=== PATIENT | male | born 1945 | race Caucasian/White ===

== ENCOUNTER 2022-10-09 16:18 | Emergency (ER) | payer OTHER, SELFPAY ==
[2022-10-09] VITALS (29 sets, daily range): BP systolic 121–151; BP diastolic 73–91; PULSE 70–99; RESP 9–23; TEMP 36.6; O2SAT 94–99; BMI 27.0
--- NOTE | 2022-10-09 16:25 | DI.RAD.S_ITS ---
PROCEDURE: XR CHEST 1V INDICATIONS: fall, +LOC, vomiting TECHNIQUE: One view of the chest was acquired. COMPARISON: None. FINDINGS: Surgical changes and devices: None. Lungs and pleura: Lungs are clear. No pleural effusions or pneumothorax. Mediastinum: Mediastinal contours appear normal. Heart size is normal. Bones and chest wall: No suspicious bony lesions. Overlying soft tissues appear unremarkable. IMPRESSION: No acute cardiopulmonary pathology. Dictated by: Hermes Rojas M.D. on 10/09/2022 at 16:43 Approved by: Hermes Rojas M.D. on 10/09/2022 at 16:44
--- NOTE | 2022-10-09 16:25 | DI.RAD.S_ITS ---
PROCEDURE: XR PELVIS 1-2V INDICATIONS: fall, +LOC, vomiting TECHNIQUE: 1 view(s) of the pelvis acquired. COMPARISON: None. FINDINGS: Bones: No fractures or dislocations. 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 No evidence of avascular necrosis of femoral head. No suspicious bony lesions. Degenerative disc disease in lower lumbar spine is seen. Soft tissues: Visualized bowel gas pattern is normal. No suspicious soft tissue calcifications. IMPRESSION: No gross acute pelvic fracture or dislocation. Dictated by: Hermes Rojas M.D. on 10/09/2022 at 16:42 Approved by: Hermes Rojas M.D. on 10/09/2022 at 16:43
--- NOTE | 2022-10-09 16:27 | DI.CT.S_ITS ---
PROCEDURE: CT CERVICAL SPINE WO CON INDICATIONS: Trauma TECHNIQUE: Noncontrast 3 mm thick sections acquired from the skull base to the T4 level. Sagittal and coronal reformats were then constructed. For radiation dose reduction, the following was used: automated exposure control, adjustment of mA and/or kV according to patient size. COMPARISON: None. FINDINGS: Image quality: Excellent. Bones: No fractures or dislocations. Loss of disc height, degenerative endplate changes and bilateral facet hypertrophic changes are noted throughout cervical spine with dorsal disc osteophyte complex formation at C4-5 through C6-7 levels causing mild central canal stenosis and mild bilateral neural foraminal narrowing. Visualized superior ribs are intact. Soft tissues: Prevertebral soft tissues are normal in thickness. No paravertebral hematomas. No apical pneumothoraces. IMPRESSION: 1. No acute cervical spine fracture or dislocation. 2. Degenerative disc disease throughout cervical spine as above. Dictated by: Hermes Rojas M.D. on 10/09/2022 at 16:44 Approved by: Hermes Rojas M.D. on 10/09/2022 at 16:45
--- NOTE | 2022-10-09 16:27 | ED.TRAUMA ---
HPI - Trauma <Nova Kelly DO - Last Filed: 10/11/22 07:38> General Chief Complaint: Fall Stated Complaint: Fall Time Seen by Provider: 10/09/22 16:25 Source: patient and RN notes reviewed Mode of arrival: EMS Limitations: altered mental status History of Present Illness HPI narrative: This is a 77-year-old male with no reported medical history or daily medications. Patient had a witnessed was on his boat with stepping and fell backwards his head on a threshold. Had at least several minute loss of consciousness present. Patient started to regain conscious started having nausea and vomiting. Was altered was confused did not know what had happened. When EMS arrived was still confused started to be able to answer questions about his name and medical history on the right to the emergency department. was able to give history patient has no daily medications no new medical issues. No reported surgeries. No known drug allergies. Patient also correlates sees answers with myself. He is able to tell me his name, the year he does not know where he is at but knew that he had been transported. Patient's main complaint is nausea and vomiting. He denies headache, neck pain, no chest pain or shortness of breath, no back pain. No numbness, tingling or weakness. No loss of bowel or bladder control. No diarrhea constipation no other current symptoms. He denies any daily medications states no known drug allergies. Patient denies tobacco, regular alcohol or illicit. Lives in [place] in his sealed up to the area and are currently staying on their sailboat. Related Data Allergies Allergy/AdvReac Type Severity Reaction Status Date / Time No Known Drug Allergies Allergy Verified 10/09/22 16:38 Review of Systems <Nova Kelly DO - Last Filed: 10/11/22 07:38> Review of Systems ROS Unobtainable: All systems reviewed & are unremarkable except as noted in HPI and below Exam <DO Lonny Mcneil Last Filed: 10/11/22 07:38> Narrative Exam Narrative: GEN: Patient appears in moderate distress. HEAD: Patient has a 2 cm laceration on the left posterior parietal scalp, no raccoon/Lemons sign. NECK: Nontender, painless range of motion, trachea midline Positive for Nexus criteria, no midline line tenderness, distracting injury, slightly altered mental status, no neuro deficit, recent EtOH. EYES: PERRLA, EOMI ENT: External inspection normal, trachea is midline, TM's are normal no hemotypanum, Nares are clear, no septal hematoma, no dental or oral injury, airway is normal and with normal occlusion, No bony tenderness RESP: Chest is nontender and has symmetric movement, no ecchymosis, breath sounds are normal no crackles, wheezes or rales CVS: Heart sounds are normal, no murmur noted, No JVD. ABG/GI: Nontender, soft, normal bowel sounds, no distention, no organomegaly, pelvic rock is negative NEURO: Oriented AOx3, neuro is grossly intact, sensation and motor is normal all 4 extremities moving, cranial nerves II through XII are intact, GCS is 14 PSYCH: Normal mood and affect SKIN: Intact, warm and dry, no crepitus and without decubitus BACK: No CVA tenderness, no vertebral tenderness, no step-off's, no crepitus EXT: Atraumatic, hips are nontender, no pedal edema, normal color and temperature, normal range of motion of extremities with normal tendon exam, 2+ pulses in all four extremities Initial Vital Signs Initial Vital Signs: Vital Signs Temperature 97.8 F 10/09/22 16:18 Pulse Rate 99 H 10/09/22 16:18 Respiratory Rate 18 10/09/22 16:18 Blood Pressure 130/80 10/09/22 16:18 Pulse Oximetry 94 10/09/22 16:18 Oxygen Delivery Method Room Air 10/09/22 16:18 <Richard Reynoso DO - Last Filed: 10/09/22 23:51> Initial Vital Signs Initial Vital Signs: Vital Signs Temperature 97.8 F 10/09/22 16:18 Pulse Rate 99 H 10/09/22 16:18 Respiratory Rate 18 10/09/22 16:18 Blood Pressure 130/80 10/09/22 16:18 Pulse Oximetry 94 10/09/22 16:18 Oxygen Delivery Method Room Air 10/09/22 16:18 Course <Nova Kelly DO - Last Filed: 10/11/22 07:38> Orders Ordered: Discontinued Medications Aspirin (Aspirin 81 Mg Chew Tab) 324 mg PO NOW ONE Stop: 10/09/22 19:52 Last Admin: 10/09/22 20:46 Dose: 324 mg Documented By: TAM Atorvastatin Calcium (Atorvastatin 20 Mg Tablet) 80 mg PO NOW ONE Stop: 10/09/22 19:52 Last Admin: 10/09/22 20:47 Dose: 80 mg Documented By: TAM Diphtheria/Tetanus/Acell Pertussis (Tet,Diph,Pertuss(Acell),Vac/Pf 0.5 Ml Syringe) 0.5 ml IM .ONCE ONE Stop: 10/09/22 16:26 Last Admin: 10/09/22 16:46 Dose: Not Given Documented By: TAM Heparin Sodium (Porcine) (Heparin 5,000 Unit/Ml Vial) 5,000 unit IV NOW ONE Stop: 10/09/22 18:06 Last Admin: 10/09/22 18:30 Dose: 5,000 unit Documented By: ROBERTH Sodium Chloride (Normal Saline 0.9%) 1,000 mls @ 150 mls/hr IV CONT CASSIDY Last Infusion: 10/10/22 00:07 Dose: 0 mls/hr Documented By: Admin: 10/09/22 16:48 Dose: 150 mls/hr Documented By: TAM Heparin Sodium/Dextrose (Heparin Drip) 25,000 unit in 500 mls @ 21.696 mls/hr IV CONT CASSIDY; Protocol Heparin Sodium/Dextrose (Heparin Drip) 25,000 unit in 500 mls @ 20 mls/hr IV CONT CASSIDY; Protocol Last Titration: 10/10/22 00:07 Dose: 0 unit/hr, 0 mls/hr Documented By: TAM Co-signed By: ERIC Admin: 10/09/22 18:34 Dose: 1,000 unit/hr, 20 mls/hr Documented By: ROBERTH Co-signed By: MARTY Lorazepam (Lorazepam 2 Mg/Ml Inj) 0.5 mg IV NOW PRN PRN Reason: vomiting Ondansetron HCl (Ondansetron 4 Mg/2 Ml Inj) 4 mg IV NOW ONE Stop: 10/09/22 16:36 Last Admin: 10/09/22 16:48 Dose: 4 mg Documented By: TAM Vital Signs Vital signs: Vital Signs - 8 hr 10/09/22 16:18 10/09/22 16:50 10/09/22 16:55 Temperature 97.8 F Pulse Rate 99 H 90 74 Respiratory Rate 18 18 19 Blood Pressure 130/80 125/78 Pulse Oximetry 94 95 96 Oxygen Delivery Method Room Air Room Air 10/09/22 17:00 10/09/22 17:00 10/09/22 17:10 Temperature Pulse Rate 91 H 87 Respiratory Rate 23 23 Blood Pressure 121/79 Pulse Oximetry 97 97 Oxygen Delivery Method 10/09/22 17:10 10/09/22 17:30 10/09/22 17:53 Temperature Pulse Rate 94 H Respiratory Rate 20 Blood Pressure 123/79 129/78 Pulse Oximetry 97 Oxygen Delivery Method 10/09/22 17:53 10/09/22 18:00 10/09/22 18:30 Temperature Pulse Rate 84 83 81 Respiratory Rate 19 18 13 Blood Pressure Pulse Oximetry 96 96 96 Oxygen Delivery Method 10/09/22 18:35 10/09/22 18:35 10/09/22 18:40 Temperature Pulse Rate 81 Respiratory Rate 20 Blood Pressure 130/80 134/86 Pulse Oximetry 98 Oxygen Delivery Method 10/09/22 18:40 10/09/22 18:50 10/09/22 18:50 Temperature Pulse Rate 91 H 80 Respiratory Rate 23 17 Blood Pressure 130/73 Pulse Oximetry 96 98 Oxygen Delivery Method 10/09/22 19:00 10/09/22 19:01 10/09/22 19:01 Temperature Pulse Rate 74 74 Respiratory Rate 11 L 12 Blood Pressure 134/73 Pulse Oximetry 98 97 Oxygen Delivery Method 10/09/22 19:10 10/09/22 19:10 10/09/22 19:20 Temperature Pulse Rate 79 Respiratory Rate 13 Blood Pressure 144/74 H 146/74 H Pulse Oximetry 97 Oxygen Delivery Method 10/09/22 19:20 10/09/22 19:30 10/09/22 19:30 Temperature Pulse Rate 79 76 Respiratory Rate 14 15 Blood Pressure 146/84 H Pulse Oximetry 98 99 Oxygen Delivery Method 10/09/22 19:40 10/09/22 19:40 10/09/22 19:50 Temperature Pulse Rate 77 75 Respiratory Rate 9 L 11 L Blood Pressure 132/77 Pulse Oximetry 97 98 Oxygen Delivery Method 10/09/22 19:50 10/09/22 20:00 10/09/22 20:00 Temperature Pulse Rate 86 Respiratory Rate 15 Blood Pressure 133/76 149/84 H Pulse Oximetry 98 Oxygen Delivery Method 10/09/22 20:10 10/09/22 20:10 10/09/22 20:20 Temperature Pulse Rate 79 83 Respiratory Rate 13 14 Blood Pressure 137/77 Pulse Oximetry 95 96 Oxygen Delivery Method 10/09/22 20:20 10/09/22 20:30 10/09/22 20:30 Temperature Pulse Rate 83 Respiratory Rate 16 Blood Pressure 144/77 H 136/83 Pulse Oximetry 97 Oxygen Delivery Method 10/09/22 20:40 10/09/22 20:40 10/09/22 20:50 Temperature Pulse Rate 81 Respiratory Rate 23 Blood Pressure 146/91 H 141/88 H Pulse Oximetry 97 Oxygen Delivery Method 10/09/22 20:50 10/09/22 21:00 10/09/22 21:00 Temperature Pulse Rate 84 78 Respiratory Rate 18 17 Blood Pressure 151/90 H Pulse Oximetry 94 94 Oxygen Delivery Method 10/09/22 21:30 10/09/22 22:00 10/09/22 22:00 Temperature Pulse Rate 75 70 Respiratory Rate 16 14 Blood Pressure 137/83 Pulse Oximetry 96 95 Oxygen Delivery Method 10/09/22 22:30 Temperature Pulse Rate 76 Respiratory Rate 14 Blood Pressure Pulse Oximetry 95 Oxygen Delivery Method <Richard Reynoso, - Last Filed: 10/09/22 23:51> Orders Ordered: Discontinued Medications Aspirin (Aspirin 81 Mg Chew Tab) 324 mg PO NOW ONE Stop: 10/09/22 19:52 Last Admin: 10/09/22 20:46 Dose: 324 mg Documented By: RL Atorvastatin Calcium (Atorvastatin 20 Mg Tablet) 80 mg PO NOW ONE Stop: 10/09/22 19:52 Last Admin: 10/09/22 20:47 Dose: 80 mg Documented By: RL Diphtheria/Tetanus/Acell Pertussis (Tet,Diph,Pertuss(Acell),Vac/Pf 0.5 Ml Syringe) 0.5 ml IM .ONCE ONE Stop: 10/09/22 16:26 Last Admin: 10/09/22 16:46 Dose: Not Given Documented By: RL Heparin Sodium (Porcine) (Heparin 5,000 Unit/Ml Vial) 5,000 unit IV NOW ONE Stop: 10/09/22 18:06 Last Admin: 10/09/22 18:30 Dose: 5,000 unit Documented By: RLS Sodium Chloride (Normal Saline 0.9%) 1,000 mls @ 150 mls/hr IV CONT CASSIDY Last Infusion: 10/10/22 00:07 Dose: 0 mls/hr Documented By: Admin: 10/09/22 16:48 Dose: 150 mls/hr Documented By: TAM Heparin Sodium/Dextrose (Heparin Drip) 25,000 unit in 500 mls @ 21.696 mls/hr IV CONT CASSIDY; Protocol Heparin Sodium/Dextrose (Heparin Drip) 25,000 unit in 500 mls @ 20 mls/hr IV CONT CASSIDY; Protocol Last Titration: 10/10/22 00:07 Dose: 0 unit/hr, 0 mls/hr Documented By: TAM Co-signed By: ERIC Admin: 10/09/22 18:34 Dose: 1,000 unit/hr, 20 mls/hr Documented By: ROBERTH Co-signed By: MARTY Lorazepam (Lorazepam 2 Mg/Ml Inj) 0.5 mg IV NOW PRN PRN Reason: vomiting Ondansetron HCl (Ondansetron 4 Mg/2 Ml Inj) 4 mg IV NOW ONE Stop: 10/09/22 16:36 Last Admin: 10/09/22 16:48 Dose: 4 mg Documented By: TAM Vital Signs Vital signs: Vital Signs - 8 hr 10/09/22 16:18 10/09/22 16:50 10/09/22 16:55 Temperature 97.8 F Pulse Rate 99 H 90 74 Respiratory Rate 18 18 19 Blood Pressure 130/80 125/78 Pulse Oximetry 94 95 96 Oxygen Delivery Method Room Air Room Air 10/09/22 17:00 10/09/22 17:00 10/09/22 17:10 Temperature Pulse Rate 91 H 87 Respiratory Rate 23 23 Blood Pressure 121/79 Pulse Oximetry 97 97 Oxygen Delivery Method 10/09/22 17:10 10/09/22 17:30 10/09/22 17:53 Temperature Pulse Rate 94 H Respiratory Rate 20 Blood Pressure 123/79 129/78 Pulse Oximetry 97 Oxygen Delivery Method 10/09/22 17:53 10/09/22 18:00 10/09/22 18:30 Temperature Pulse Rate 84 83 81 Respiratory Rate 19 18 13 Blood Pressure Pulse Oximetry 96 96 96 Oxygen Delivery Method 10/09/22 18:35 10/09/22 18:35 10/09/22 18:40 Temperature Pulse Rate 81 Respiratory Rate 20 Blood Pressure 130/80 134/86 Pulse Oximetry 98 Oxygen Delivery Method 10/09/22 18:40 10/09/22 18:50 10/09/22 18:50 Temperature Pulse Rate 91 H 80 Respiratory Rate 23 17 Blood Pressure 130/73 Pulse Oximetry 96 98 Oxygen Delivery Method 10/09/22 19:00 10/09/22 19:01 10/09/22 19:01 Temperature Pulse Rate 74 74 Respiratory Rate 11 L 12 Blood Pressure 134/73 Pulse Oximetry 98 97 Oxygen Delivery Method 10/09/22 19:10 10/09/22 19:10 10/09/22 19:20 Temperature Pulse Rate 79 Respiratory Rate 13 Blood Pressure 144/74 H 146/74 H Pulse Oximetry 97 Oxygen Delivery Method 10/09/22 19:20 10/09/22 19:30 10/09/22 19:30 Temperature Pulse Rate 79 76 Respiratory Rate 14 15 Blood Pressure 146/84 H Pulse Oximetry 98 99 Oxygen Delivery Method 10/09/22 19:40 10/09/22 19:40 10/09/22 19:50 Temperature Pulse Rate 77 75 Respiratory Rate 9 L 11 L Blood Pressure 132/77 Pulse Oximetry 97 98 Oxygen Delivery Method 10/09/22 19:50 10/09/22 20:00 10/09/22 20:00 Temperature Pulse Rate 86 Respiratory Rate 15 Blood Pressure 133/76 149/84 H Pulse Oximetry 98 Oxygen Delivery Method 10/09/22 20:10 10/09/22 20:10 10/09/22 20:20 Temperature Pulse Rate 79 83 Respiratory Rate 13 14 Blood Pressure 137/77 Pulse Oximetry 95 96 Oxygen Delivery Method 10/09/22 20:20 10/09/22 20:30 10/09/22 20:30 Temperature Pulse Rate 83 Respiratory Rate 16 Blood Pressure 144/77 H 136/83 Pulse Oximetry 97 Oxygen Delivery Method 10/09/22 20:40 10/09/22 20:40 10/09/22 20:50 Temperature Pulse Rate 81 Respiratory Rate 23 Blood Pressure 146/91 H 141/88 H Pulse Oximetry 97 Oxygen Delivery Method 10/09/22 20:50 10/09/22 21:00 10/09/22 21:00 Temperature Pulse Rate 84 78 Respiratory Rate 18 17 Blood Pressure 151/90 H Pulse Oximetry 94 94 Oxygen Delivery Method 10/09/22 21:30 10/09/22 22:00 10/09/22 22:00 Temperature Pulse Rate 75 70 Respiratory Rate 16 14 Blood Pressure 137/83 Pulse Oximetry 96 95 Oxygen Delivery Method 10/09/22 22:30 Temperature Pulse Rate 76 Respiratory Rate 14 Blood Pressure Pulse Oximetry 95 Oxygen Delivery Method MDM - Trauma <Nova Kelly, DO - Last Filed: 10/11/22 07:38> Lab Data 10/09/22 16:29 10/09/22 16:29 Labs: Lab Results 10/09/22 10/09/22 10/09/22 Range/Units 16:29 16:29 16:29 WBC 12.1 H (4.5-11.0) X10^3/uL RBC 4.97 (4.5-5.9) X10^6/uL Hgb 15.5 (13.5-17.5) g/dL Hct 45.7 (41-53) % MCV 92.1 (80-100) fL MCH 31.3 (26-34) PG MCHC 33.9 (30-36) % RDW 13.9 (11.6-14.8) % Plt Count 315 (150-400) X10^3/uL Neut % (Auto) 36.9 L (50-75) % Lymph % (Auto) 49.5 H (25-40) % Antelope % (Auto) 8.8 (3-14) % Eos % (Auto) 3.8 (2-4) % Baso % (Auto) 1.0 (0-2) % Neut # (Auto) 4400 (1447-2432) /uL Lymph # (Auto) 6000 H (8531-2477) /uL Antelope # (Auto) 1100 H (0-900) /uL Eos # (Auto) 500 H (0-450) /uL Baso # (Auto) 100 (0-100) /uL PT 12.2 (10.1-12.7) SECONDS INR 1.1 (0.9-1.3) APTT 32 (26-36) SECONDS Sodium 137 (137-145) mmol/L Potassium 3.5 (3.4-5.1) mmol/L Chloride 104 (98-107) mmol/L Carbon Dioxide 17 L (22-32) mmol/L BUN 16 (9-20) mg/dL Creatinine 1.01 (0.66-1.25) mg/dL Estimated GFR > 60 (>60) mL/min BUN/Creatinine Ratio 15.8 (6-22) Glucose 147 H (80-110) mg/dL Lactate (0.7-2.1) mmol/L Calcium 8.9 (8.4-10.2) mg/dL Total Bilirubin 0.5 (0.2-1.3) mg/dL AST 39 (17-59) IU/L ALT 30 (<50) IU/L Alkaline Phosphatase 100 (38-126) U/L Total Creatine Kinase 340 H (55-170) U/L CK-MB (CK-2) TNP CK-MB (CK-2) Rel Index TNP Troponin I 0.446 H* (0.01-0.034) ng/mL NT-Pro-B Natriuret Pep (<450) pg/mL Total Protein 8.1 (6.3-8.2) g/dL Albumin 4.6 (3.5-5.0) g/dL Globulin 3.5 (1.7-4.1) g/dL Albumin/Globulin Ratio 1.3 (1.0-2.8) Lipase 87 (23-300) U/L Urine RBC (0-5/HPF) Urine WBC (0-5/HPF) Ur Squamous Epith Cells (0-5/HPF) Urine Bacteria (None) Ur Culture Indicated? U Opiates 300ng/mL cut (Negative) Ur Oxycodone Screen (Negative) Urine Methadone Screen (Negative) Ur Barbiturates Screen (Negative) U Tricyclic Antidepress (Negative) Ur Phencyclidine Scrn (Negative) Ur Amphetamines Screen (Negative) U Methamphetamines Scrn (Negative) Ur MDMA Scrn (Ecstasy) (Negative) U Benzodiazepines Scrn (Negative) Urine Cocaine Screen (Negative) U Marijuana (THC) Screen (Negative) Ethyl Alcohol < 10 ( - 10) mg/dL SARS-CoV-2 (PCR) (Negative) Blood Type Antibody Screen 10/09/22 10/09/22 10/09/22 Range/Units 16:44 16:44 16:44 WBC (4.5-11.0) X10^3/uL RBC (4.5-5.9) X10^6/uL Hgb (13.5-17.5) g/dL Hct (41-53) % MCV (80-100) fL MCH (26-34) PG MCHC (30-36) % RDW (11.6-14.8) % Plt Count (150-400) X10^3/uL Neut % (Auto) (50-75) % Lymph % (Auto) (25-40) % Antelope % (Auto) (3-14) % Eos % (Auto) (2-4) % Baso % (Auto) (0-2) % Neut # (Auto) (2297-4550) /uL Lymph # (Auto) (8281-4225) /uL Antelope # (Auto) (0-900) /uL Eos # (Auto) (0-450) /uL Baso # (Auto) (0-100) /uL PT (10.1-12.7) SECONDS INR (0.9-1.3) APTT (26-36) SECONDS Sodium (137-145) mmol/L Potassium (3.4-5.1) mmol/L Chloride (98-107) mmol/L Carbon Dioxide (22-32) mmol/L BUN (9-20) mg/dL Creatinine (0.66-1.25) mg/dL Estimated GFR (>60) mL/min BUN/Creatinine Ratio (6-22) Glucose (80-110) mg/dL Lactate 3.1 H (0.7-2.1) mmol/L Calcium (8.4-10.2) mg/dL Total Bilirubin (0.2-1.3) mg/dL AST (17-59) IU/L ALT (<50) IU/L Alkaline Phosphatase (38-126) U/L Total Creatine Kinase (55-170) U/L CK-MB (CK-2) CK-MB (CK-2) Rel Index Troponin I (0.01-0.034) ng/mL NT-Pro-B Natriuret Pep 28 (<450) pg/mL Total Protein (6.3-8.2) g/dL Albumin (3.5-5.0) g/dL Globulin (1.7-4.1) g/dL Albumin/Globulin Ratio (1.0-2.8) Lipase (23-300) U/L Urine RBC (0-5/HPF) Urine WBC (0-5/HPF) Ur Squamous Epith Cells (0-5/HPF) Urine Bacteria (None) Ur Culture Indicated? U Opiates 300ng/mL cut (Negative) Ur Oxycodone Screen (Negative) Urine Methadone Screen (Negative) Ur Barbiturates Screen (Negative) U Tricyclic Antidepress (Negative) Ur Phencyclidine Scrn (Negative) Ur Amphetamines Screen (Negative) U Methamphetamines Scrn (Negative) Ur MDMA Scrn (Ecstasy) (Negative) U Benzodiazepines Scrn (Negative) Urine Cocaine Screen (Negative) U Marijuana (THC) Screen (Negative) Ethyl Alcohol ( - 10) mg/dL SARS-CoV-2 (PCR) (Negative) Blood Type A Positive Antibody Screen Negative 10/09/22 10/09/22 10/09/22 Range/Units 18:30 18:50 18:50 WBC (4.5-11.0) X10^3/uL RBC (4.5-5.9) X10^6/uL Hgb (13.5-17.5) g/dL Hct (41-53) % MCV (80-100) fL MCH (26-34) PG MCHC (30-36) % RDW (11.6-14.8) % Plt Count (150-400) X10^3/uL Neut % (Auto) (50-75) % Lymph % (Auto) (25-40) % Antelope % (Auto) (3-14) % Eos % (Auto) (2-4) % Baso % (Auto) (0-2) % Neut # (Auto) (2682-4600) /uL Lymph # (Auto) (8255-0040) /uL Antelope # (Auto) (0-900) /uL Eos # (Auto) (0-450) /uL Baso # (Auto) (0-100) /uL PT (10.1-12.7) SECONDS INR (0.9-1.3) APTT (26-36) SECONDS Sodium (137-145) mmol/L Potassium (3.4-5.1) mmol/L Chloride (98-107) mmol/L Carbon Dioxide (22-32) mmol/L BUN (9-20) mg/dL Creatinine (0.66-1.25) mg/dL Estimated GFR (>60) mL/min BUN/Creatinine Ratio (6-22) Glucose (80-110) mg/dL Lactate 2.1 (0.7-2.1) mmol/L Calcium (8.4-10.2) mg/dL Total Bilirubin (0.2-1.3) mg/dL AST (17-59) IU/L ALT (<50) IU/L Alkaline Phosphatase (38-126) U/L Total Creatine Kinase (55-170) U/L CK-MB (CK-2) CK-MB (CK-2) Rel Index Troponin I 0.469 H* (0.01-0.034) ng/mL NT-Pro-B Natriuret Pep (<450) pg/mL Total Protein (6.3-8.2) g/dL Albumin (3.5-5.0) g/dL Globulin (1.7-4.1) g/dL Albumin/Globulin Ratio (1.0-2.8) Lipase (23-300) U/L Urine RBC (0-5/HPF) Urine WBC (0-5/HPF) Ur Squamous Epith Cells (0-5/HPF) Urine Bacteria (None) Ur Culture Indicated? U Opiates 300ng/mL cut (Negative) Ur Oxycodone Screen (Negative) Urine Methadone Screen (Negative) Ur Barbiturates Screen (Negative) U Tricyclic Antidepress (Negative) Ur Phencyclidine Scrn (Negative) Ur Amphetamines Screen (Negative) U Methamphetamines Scrn (Negative) Ur MDMA Scrn (Ecstasy) (Negative) U Benzodiazepines Scrn (Negative) Urine Cocaine Screen (Negative) U Marijuana (THC) Screen (Negative) Ethyl Alcohol ( - 10) mg/dL SARS-CoV-2 (PCR) Negative (Negative) Blood Type Antibody Screen 10/09/22 10/09/22 Range/Units 18:56 18:56 WBC (4.5-11.0) X10^3/uL RBC (4.5-5.9) X10^6/uL Hgb (13.5-17.5) g/dL Hct (41-53) % MCV (80-100) fL MCH (26-34) PG MCHC (30-36) % RDW (11.6-14.8) % Plt Count (150-400) X10^3/uL Neut % (Auto) (50-75) % Lymph % (Auto) (25-40) % Antelope % (Auto) (3-14) % Eos % (Auto) (2-4) % Baso % (Auto) (0-2) % Neut # (Auto) (5834-0140) /uL Lymph # (Auto) (0459-0614) /uL Antelope # (Auto) (0-900) /uL Eos # (Auto) (0-450) /uL Baso # (Auto) (0-100) /uL PT (10.1-12.7) SECONDS INR (0.9-1.3) APTT (26-36) SECONDS Sodium (137-145) mmol/L Potassium (3.4-5.1) mmol/L Chloride (98-107) mmol/L Carbon Dioxide (22-32) mmol/L BUN (9-20) mg/dL Creatinine (0.66-1.25) mg/dL Estimated GFR (>60) mL/min BUN/Creatinine Ratio (6-22) Glucose (80-110) mg/dL Lactate (0.7-2.1) mmol/L Calcium (8.4-10.2) mg/dL Total Bilirubin (0.2-1.3) mg/dL AST (17-59) IU/L ALT (<50) IU/L Alkaline Phosphatase (38-126) U/L Total Creatine Kinase (55-170) U/L CK-MB (CK-2) CK-MB (CK-2) Rel Index Troponin I (0.01-0.034) ng/mL NT-Pro-B Natriuret Pep (<450) pg/mL Total Protein (6.3-8.2) g/dL Albumin (3.5-5.0) g/dL Globulin (1.7-4.1) g/dL Albumin/Globulin Ratio (1.0-2.8) Lipase (23-300) U/L Urine RBC 1-5/hpf (0-5/HPF) Urine WBC 0-1/hpf (0-5/HPF) Ur Squamous Epith Cells 0-1 /hpf (0-5/HPF) Urine Bacteria None seen (None) Ur Culture Indicated? Cult not indicated U Opiates 300ng/mL cut Negative (Negative) Ur Oxycodone Screen Negative (Negative) Urine Methadone Screen Negative (Negative) Ur Barbiturates Screen Negative (Negative) U Tricyclic Antidepress Negative (Negative) Ur Phencyclidine Scrn Negative (Negative) Ur Amphetamines Screen Negative (Negative) U Methamphetamines Scrn Negative (Negative) Ur MDMA Scrn (Ecstasy) Negative (Negative) U Benzodiazepines Scrn Negative (Negative) Urine Cocaine Screen Negative (Negative) U Marijuana (THC) Screen Negative (Negative) Ethyl Alcohol ( - 10) mg/dL SARS-CoV-2 (PCR) (Negative) Blood Type Antibody Screen Urine Dip Bedside Urine Glucose Negative Bedside Urine Bilirubin - Negative Bedside Urine Ketone ++ 40 Urine Specific [place] 1.005 Bedside Urine Occult Blood - Negative Bedside Urine pH 8.0 Bedside Urine Protein - Negative Bedside Urine Urobilinogen - Negative Bedside Urine Nitrite - Negative Bedside Urine Leukocytes - Negative Esterase Imaging Data CT scan - head: Radiologist's Impression: Close Head CT (Signed) Hermes Rojas 10/09/[address] (Signed) Hermes Rojas 10/09/22 Pelvis X-Ray (Signed) Hermes Rojas 10/09/22 Chest X-Ray (Signed) Hermes Rojas 10/09/22 [place] [address] CT Scan Report Signed Patient: Naveen Shaw MR#: [id number] : 1945 Acct:[id number] Age/Sex: 77 / M Date of Service: 10/09/22 Loc: Accession Number: [id number] ?? Procedure: CT head/brain wo con Ordering Provider: Nova Kelly D.O. PROCEDURE:? CT HEAD/BRAIN WO CON ? INDICATIONS:? Trauma ? TECHNIQUE:? Noncontrast 4.5 mm thick angled axial sections acquired from the foramen magnum to the vertex, with coronal and sagittal reformats.? For radiation dose reduction, the following was used:? automated exposure control, adjustment of mA and/or kV according to patient size.? ? COMPARISON:? None. ? FINDINGS:? Image quality:? Excellent.? ? CSF spaces:? Basal cisterns are patent.? No extra-axial fluid collections.? The ventricles are symmetric in size and shape.? ? Brain:? No intracranial bleeds or masses.? There is cerebral volume loss for age, with resultant ventricular and sulcal prominence.? There are periventricular and deep white matter chronic small vessel ischemic changes.? There is intracranial internal carotid artery atherosclerosis.? ? Skull and face:? Calvarium and visualized facial bones appear intact, without suspicious lesions.? ? Sinuses:? Visualized sinuses and mastoids are clear.? ? IMPRESSION:? 1. No CT evidence of acute intracranial abnormalities. ? 2. Age related volume loss and mild white matter chronic small vessel ischemic changes. ? 3. No acute skull fracture. ? ? Dictated by: Hermes Rojas M.D. on 10/09/2022 at 16:46 ? ? Approved by: Hermes Rojas M.D. on 10/09/2022 at 16:47?? CT - cervical spine: Radiologist's Impression: [address] [address] [address] Scan Report Signed Patient: Naveen Shaw MR#: [id number] : 1945 Acct:[id number] Age/Sex: 77 / M Date of Service: 10/09/22 Loc: ED Accession Number: [id number] ?? Procedure: CT cervical spine wo con Ordering Provider: Nova Kelly D.O. PROCEDURE:? CT CERVICAL SPINE WO CON ? INDICATIONS:? Trauma ? TECHNIQUE:? Noncontrast 3 mm thick sections acquired from the skull base to the T4 level.? Sagittal and coronal reformats were then constructed.? For radiation dose reduction, the following was used:? automated exposure control, adjustment of mA and/or kV according to patient size.? ? COMPARISON:? None. ? FINDINGS:? Image quality:? Excellent.? ? Bones:? No fractures or dislocations.? Loss of disc height, degenerative endplate changes and bilateral facet hypertrophic changes are noted throughout cervical spine with dorsal disc osteophyte complex formation at C4-5 through C6-7 levels causing mild central canal stenosis and mild bilateral neural foraminal narrowing.? Visualized superior ribs are intact.? ? Soft tissues:? Prevertebral soft tissues are normal in thickness.? No paravertebral hematomas.? No apical pneumothoraces.? ? ? IMPRESSION:? ? 1. No acute cervical spine fracture or dislocation. ? 2. Degenerative disc disease throughout cervical spine as above.? Dictated by: Hermes Rojas M.D. on 10/09/2022 at 16:44 ? ? Approved by: Hermes Rojas M.D. on 10/09/2022 at 16:45?? Chest x-ray: Radiologist's Impression: Close Head CT (Signed) Hermes Rojas - 10/09/[address] (Signed) Hermes Rojas - 10/09/22 Pelvis X-Ray (Signed) Hermes Rojas - 10/09/22 Chest X-Ray (Signed) Hermes Rojas - 10/09/22 Launch?Image [address] [address] XRay Report Signed Patient: Naveen Shaw MR#: [id number] : 1945 Acct:[id number] Age/Sex: 77 / M Date of Service: 10/09/22 Loc: ED Accession Number: [id number] ?? Procedure: XR chest 1V Ordering Provider: Nova Kelly D.O. PROCEDURE:? XR CHEST 1V ? INDICATIONS:? fall, +LOC, vomiting ? TECHNIQUE:? One view of the chest was acquired.? ? COMPARISON:? None. ? FINDINGS:? ? Surgical changes and devices:? None.? ? Lungs and pleura:? Lungs are clear.? No pleural effusions or pneumothorax.? ? Mediastinum:? Mediastinal contours appear normal.? Heart size is normal.? ? Bones and chest wall:? No suspicious bony lesions.? Overlying soft tissues appear unremarkable.? ? IMPRESSION:? No acute cardiopulmonary pathology. ? ? Dictated by: Hermes Rojas M.D. on 10/09/2022 at 16:43 ? ? Approved by: Hermes Rojas M.D. on 10/09/2022 at 16:44?? pelvic xray: Radiologist's Impression: [address] [address] XRay Report Signed Patient: Naveen Shwa MR#: [id number] : 1945 Acct:[id number] Age/Sex: 77 / M Date of Service: 10/09/22 Loc: ED Accession Number: [id number] ?? Procedure: XR pelvis 1-2V Ordering Provider: Nova Kelly D.O. PROCEDURE:? XR PELVIS 1-2V ? INDICATIONS:? fall, +LOC, vomiting ? TECHNIQUE:? 1 view(s) of the pelvis acquired.? ? COMPARISON:? None. ? FINDINGS:? ? Bones:? No fractures or dislocations.? Right worse than left bilateral hip joint osteoarthritic changes are seen.? No evidence of avascular necrosis of femoral head.? No suspicious bony lesions.? Degenerative disc disease in lower lumbar spine is seen.? ? Soft tissues:? Visualized bowel gas pattern is normal.? No suspicious soft tissue calcifications.? ? IMPRESSION:? No gross acute pelvic fracture or dislocation. ? ? Dictated by: Hermes Rojas M.D. on 10/09/2022 at 16:42 ? ? Approved by: Hermes Rojas M.D. on 10/09/2022 at 16:43?? ECG Data Attestation: I personally reviewed and interpreted this ECG as follows: Prior ECG tracings: not available for review Interpretation: Sinus rhythm rate of 94 MS 172 QRS of 92 and QTC of 485. No acute ST elevation appreciated. No priors for comparison. Patient does have some depression lateral leads. EKG 2. Sinus rhythm with premature atrial complexes rate of 78 MS 180 QRS [address]TC [address] No acute ST elevation. Patient has some mild depression in 1st EKG but does appear improved on repeat. MDM Narrative Medical decision making narrative: This is a 77-year-old male with witnessed fall and loss of consciousness with a small laceration in the posterior scalp. Patient was quite confused for EMS is starting to have improvement but is still somewhat confused. Concern for bleed patient is not anticoagulated but had C-spine with chest x-ray and pelvic x-ray. Labs including EKG, cardiac enzymes were included is unclear why patient fell. Head CT, C-spine CT are negative, chest x-ray and pelvic x-ray showed no acute change. Patient has a white count of 12, coags are negative, CO2 17, glucose 147 lactate 3.1 total CK is 340 with troponin positive at 0.44, patient does not have any active chest pain. After discussion with patient's he does not admit to any chest pain but states he is had burning in his lungs intermittently sometimes with exertion but sometimes at other times for the past month. Patient did drive from [place], with his prolonged driving did get a CT PE which is negative, no intra acute intrathoracic trauma, no trauma in the abdomen pelvis there is a hernia noted there is some distal colon wall thickening, bilateral inguinal hernias with a right containing nondilated small bowel in the left containing a portion of the bladder. Patient has several other incidental findings noted. Patient's mentation has improved he is still very reluctant for treatment I am unsure if this is all reluctant or if there is still some concussive properties from his injury. Heparin was started after head CT was found to be negative, CT angio does not show pulmonary emboli so was given 5000 unit bolus followed by drip with NSTEMI protocol. Patient is not complaining of any chest pain, shortness of breath or other changes so nitro has not been started. Discussed with patient and family at bedside several times that he has appears to be an NSTEMI, likely has concussion causing his nausea and vomiting but could be related to his cardiac issues and needs to be at a facility with inpatient Cardiology and transfer. Calls out to multiple facilities to try to facilitate transfer. Patient signed out to Dr. Reynoso while awaiting transfer. Patitent nausea has improved, no longer vomiting. Has been hemodynamically stable. Patient memory has improved significantly but does not recall events from earlier. [1900] (Edgardo) Patient received in sign out from [Robin]. I have reviewed the clinical course and performed an independent history and physical exam. 1999 - discussed with [facility] [place] - approval for transfer to [facility] 2009 -discussed with on-call Cardiology and [facility], Dr. Medeiros, happy with plan. Requests call to hospitalist. 2029 - call to Dr. Mayen ([facility] Hospitalist) happy to accept. ALS transport contacted, to be ready by [phone] <Richard Reynoso, DO - Last Filed: 10/09/22 23:51> Lab Data Labs: Lab Results 10/09/22 10/09/22 10/09/22 Range/Units 16:29 16:29 16:29 WBC 12.1 H (4.5-11.0) X10^3/uL RBC 4.97 (4.5-5.9) X10^6/uL Hgb 15.5 (13.5-17.5) g/dL Hct 45.7 (41-53) % MCV 92.1 (80-100) fL MCH 31.3 (26-34) PG MCHC 33.9 (30-36) % RDW 13.9 (11.6-14.8) % Plt Count 315 (150-400) X10^3/uL Neut % (Auto) 36.9 L (50-75) % Lymph % (Auto) 49.5 H (25-40) % Antelope % (Auto) 8.8 (3-14) % Eos % (Auto) 3.8 (2-4) % Baso % (Auto) 1.0 (0-2) % Neut # (Auto) 4400 (3581-7307) /uL Lymph # (Auto) 6000 H (2855-4874) /uL Antelope # (Auto) 1100 H (0-900) /uL Eos # (Auto) 500 H (0-450) /uL Baso # (Auto) 100 (0-100) /uL PT 12.2 (10.1-12.7) SECONDS INR 1.1 (0.9-1.3) APTT 32 (26-36) SECONDS Sodium 137 (137-145) mmol/L Potassium 3.5 (3.4-5.1) mmol/L Chloride 104 (98-107) mmol/L Carbon Dioxide 17 L (22-32) mmol/L BUN 16 (9-20) mg/dL Creatinine 1.01 (0.66-1.25) mg/dL Estimated GFR > 60 (>60) mL/min BUN/Creatinine Ratio 15.8 (6-22) Glucose 147 H (80-110) mg/dL Lactate (0.7-2.1) mmol/L Calcium 8.9 (8.4-10.2) mg/dL Total Bilirubin 0.5 (0.2-1.3) mg/dL AST 39 (17-59) IU/L ALT 30 (<50) IU/L Alkaline Phosphatase 100 (38-126) U/L Total Creatine Kinase 340 H (55-170) U/L CK-MB (CK-2) TNP CK-MB (CK-2) Rel Index TNP Troponin I 0.446 H* (0.01-0.034) ng/mL NT-Pro-B Natriuret Pep (<450) pg/mL Total Protein 8.1 (6.3-8.2) g/dL Albumin 4.6 (3.5-5.0) g/dL Globulin 3.5 (1.7-4.1) g/dL Albumin/Globulin Ratio 1.3 (1.0-2.8) Lipase 87 (23-300) U/L Urine RBC (0-5/HPF) Urine WBC (0-5/HPF) Ur Squamous Epith Cells (0-5/HPF) Urine Bacteria (None) Ur Culture Indicated? U Opiates 300ng/mL cut (Negative) Ur Oxycodone Screen (Negative) Urine Methadone Screen (Negative) Ur Barbiturates Screen (Negative) U Tricyclic Antidepress (Negative) Ur Phencyclidine Scrn (Negative) Ur Amphetamines Screen (Negative) U Methamphetamines Scrn (Negative) Ur MDMA Scrn (Ecstasy) (Negative) U Benzodiazepines Scrn (Negative) Urine Cocaine Screen (Negative) U Marijuana (THC) Screen (Negative) Ethyl Alcohol < 10 ( - 10) mg/dL SARS-CoV-2 (PCR) (Negative) Blood Type Antibody Screen 10/09/22 10/09/22 10/09/22 Range/Units 16:44 16:44 16:44 WBC (4.5-11.0) X10^3/uL RBC (4.5-5.9) X10^6/uL Hgb (13.5-17.5) g/dL Hct (41-53) % MCV (80-100) fL MCH (26-34) PG MCHC (30-36) % RDW (11.6-14.8) % Plt Count (150-400) X10^3/uL Neut % (Auto) (50-75) % Lymph % (Auto) (25-40) % Antelope % (Auto) (3-14) % Eos % (Auto) (2-4) % Baso % (Auto) (0-2) % Neut # (Auto) (8598-2941) /uL Lymph # (Auto) (6242-8971) /uL Antelope # (Auto) (0-900) /uL Eos # (Auto) (0-450) /uL Baso # (Auto) (0-100) /uL PT (10.1-12.7) SECONDS INR (0.9-1.3) APTT (26-36) SECONDS Sodium (137-145) mmol/L Potassium (3.4-5.1) mmol/L Chloride (98-107) mmol/L Carbon Dioxide (22-32) mmol/L BUN (9-20) mg/dL Creatinine (0.66-1.25) mg/dL Estimated GFR (>60) mL/min BUN/Creatinine Ratio (6-22) Glucose (80-110) mg/dL Lactate 3.1 H (0.7-2.1) mmol/L Calcium (8.4-10.2) mg/dL Total Bilirubin (0.2-1.3) mg/dL AST (17-59) IU/L ALT (<50) IU/L Alkaline Phosphatase (38-126) U/L Total Creatine Kinase (55-170) U/L CK-MB (CK-2) CK-MB (CK-2) Rel Index Troponin I (0.01-0.034) ng/mL NT-Pro-B Natriuret Pep 28 (<450) pg/mL Total Protein (6.3-8.2) g/dL Albumin (3.5-5.0) g/dL Globulin (1.7-4.1) g/dL Albumin/Globulin Ratio (1.0-2.8) Lipase (23-300) U/L Urine RBC (0-5/HPF) Urine WBC (0-5/HPF) Ur Squamous Epith Cells (0-5/HPF) Urine Bacteria (None) Ur Culture Indicated? U Opiates 300ng/mL cut (Negative) Ur Oxycodone Screen (Negative) Urine Methadone Screen (Negative) Ur Barbiturates Screen (Negative) U Tricyclic Antidepress (Negative) Ur Phencyclidine Scrn (Negative) Ur Amphetamines Screen (Negative) U Methamphetamines Scrn (Negative) Ur MDMA Scrn (Ecstasy) (Negative) U Benzodiazepines Scrn (Negative) Urine Cocaine Screen (Negative) U Marijuana (THC) Screen (Negative) Ethyl Alcohol ( - 10) mg/dL SARS-CoV-2 (PCR) (Negative) Blood Type A Positive Antibody Screen Negative 10/09/22 10/09/22 10/09/22 Range/Units 18:30 18:50 18:50 WBC (4.5-11.0) X10^3/uL RBC (4.5-5.9) X10^6/uL Hgb (13.5-17.5) g/dL Hct (41-53) % MCV (80-100) fL MCH (26-34) PG MCHC (30-36) % RDW (11.6-14.8) % Plt Count (150-400) X10^3/uL Neut % (Auto) (50-75) % Lymph % (Auto) (25-40) % Antelope % (Auto) (3-14) % Eos % (Auto) (2-4) % Baso % (Auto) (0-2) % Neut # (Auto) (2061-4293) /uL Lymph # (Auto) (8563-8021) /uL Antelope # (Auto) (0-900) /uL Eos # (Auto) (0-450) /uL Baso # (Auto) (0-100) /uL PT (10.1-12.7) SECONDS INR (0.9-1.3) APTT (26-36) SECONDS Sodium (137-145) mmol/L Potassium (3.4-5.1) mmol/L Chloride (98-107) mmol/L Carbon Dioxide (22-32) mmol/L BUN (9-20) mg/dL Creatinine (0.66-1.25) mg/dL Estimated GFR (>60) mL/min BUN/Creatinine Ratio (6-22) Glucose (80-110) mg/dL Lactate 2.1 (0.7-2.1) mmol/L Calcium (8.4-10.2) mg/dL Total Bilirubin (0.2-1.3) mg/dL AST (17-59) IU/L ALT (<50) IU/L Alkaline Phosphatase (38-126) U/L Total Creatine Kinase (55-170) U/L CK-MB (CK-2) CK-MB (CK-2) Rel Index Troponin I 0.469 H* (0.01-0.034) ng/mL NT-Pro-B Natriuret Pep (<450) pg/mL Total Protein (6.3-8.2) g/dL Albumin (3.5-5.0) g/dL Globulin (1.7-4.1) g/dL Albumin/Globulin Ratio (1.0-2.8) Lipase (23-300) U/L Urine RBC (0-5/HPF) Urine WBC (0-5/HPF) Ur Squamous Epith Cells (0-5/HPF) Urine Bacteria (None) Ur Culture Indicated? U Opiates 300ng/mL cut (Negative) Ur Oxycodone Screen (Negative) Urine Methadone Screen (Negative) Ur Barbiturates Screen (Negative) U Tricyclic Antidepress (Negative) Ur Phencyclidine Scrn (Negative) Ur Amphetamines Screen (Negative) U Methamphetamines Scrn (Negative) Ur MDMA Scrn (Ecstasy) (Negative) U Benzodiazepines Scrn (Negative) Urine Cocaine Screen (Negative) U Marijuana (THC) Screen (Negative) Ethyl Alcohol ( - 10) mg/dL SARS-CoV-2 (PCR) Negative (Negative) Blood Type Antibody Screen 10/09/22 10/09/22 Range/Units 18:56 18:56 WBC (4.5-11.0) X10^3/uL RBC (4.5-5.9) X10^6/uL Hgb (13.5-17.5) g/dL Hct (41-53) % MCV (80-100) fL MCH (26-34) PG MCHC (30-36) % RDW (11.6-14.8) % Plt Count (150-400) X10^3/uL Neut % (Auto) (50-75) % Lymph % (Auto) (25-40) % Antelope % (Auto) (3-14) % Eos % (Auto) (2-4) % Baso % (Auto) (0-2) % Neut # (Auto) (2438-6730) /uL Lymph # (Auto) (8719-2305) /uL Antelope # (Auto) (0-900) /uL Eos # (Auto) (0-450) /uL Baso # (Auto) (0-100) /uL PT (10.1-12.7) SECONDS INR (0.9-1.3) APTT (26-36) SECONDS Sodium (137-145) mmol/L Potassium (3.4-5.1) mmol/L Chloride (98-107) mmol/L Carbon Dioxide (22-32) mmol/L BUN (9-20) mg/dL Creatinine (0.66-1.25) mg/dL Estimated GFR (>60) mL/min BUN/Creatinine Ratio (6-22) Glucose (80-110) mg/dL Lactate (0.7-2.1) mmol/L Calcium (8.4-10.2) mg/dL Total Bilirubin (0.2-1.3) mg/dL AST (17-59) IU/L ALT (<50) IU/L Alkaline Phosphatase (38-126) U/L Total Creatine Kinase (55-170) U/L CK-MB (CK-2) CK-MB (CK-2) Rel Index Troponin I (0.01-0.034) ng/mL NT-Pro-B Natriuret Pep (<450) pg/mL Total Protein (6.3-8.2) g/dL Albumin (3.5-5.0) g/dL Globulin (1.7-4.1) g/dL Albumin/Globulin Ratio (1.0-2.8) Lipase (23-300) U/L Urine RBC 1-5/hpf (0-5/HPF) Urine WBC 0-1/hpf (0-5/HPF) Ur Squamous Epith Cells 0-1 /hpf (0-5/HPF) Urine Bacteria None seen (None) Ur Culture Indicated? Cult not indicated U Opiates 300ng/mL cut Negative (Negative) Ur Oxycodone Screen Negative (Negative) Urine Methadone Screen Negative (Negative) Ur Barbiturates Screen Negative (Negative) U Tricyclic Antidepress Negative (Negative) Ur Phencyclidine Scrn Negative (Negative) Ur Amphetamines Screen Negative (Negative) U Methamphetamines Scrn Negative (Negative) Ur MDMA Scrn (Ecstasy) Negative (Negative) U Benzodiazepines Scrn Negative (Negative) Urine Cocaine Screen Negative (Negative) U Marijuana (THC) Screen Negative (Negative) Ethyl Alcohol ( - 10) mg/dL SARS-CoV-2 (PCR) (Negative) Blood Type Antibody Screen Urine Dip Bedside Urine Glucose Negative Bedside Urine Bilirubin - Negative Bedside Urine Ketone ++ 40 Urine Specific [place] 1.005 Bedside Urine Occult Blood - Negative Bedside Urine pH 8.0 Bedside Urine Protein - Negative Bedside Urine Urobilinogen - Negative Bedside Urine Nitrite - Negative Bedside Urine Leukocytes - Negative Esterase MDM Narrative Medical decision making narrative: This is a 77-year-old male with witnessed fall and loss of consciousness with a small laceration in the posterior scalp. Patient was quite confused for EMS is starting to have improvement but is still somewhat confused. Concern for bleed patient is not anticoagulated but had C-spine with chest x-ray and pelvic x-ray. Labs including EKG, cardiac enzymes were included is unclear why patient fell. Head CT, C-spine CT are negative, chest x-ray and pelvic x-ray showed no acute change. Patient has a white count of 12, coags are negative, CO2 17, glucose 147 lactate 3.1 total CK is 340 with troponin positive at 0.44, patient does not have any active chest pain. After discussion with patient's he does not admit to any chest pain but states he is had burning in his lungs intermittently sometimes with exertion but sometimes at other times for the past month. Patient did drive from [place], with his prolonged driving did get a CT PE which is negative, no intra acute intrathoracic trauma, no trauma in the abdomen pelvis there is a hernia noted there is some distal colon wall thickening, bilateral inguinal hernias with a right containing nondilated small bowel in the left containing a portion of the bladder. Patient has several other incidental findings noted. Patient's mentation has improved he is still very reluctant for treatment I am unsure if this is all reluctant or if there is still some concussive properties from his injury. Heparin was started after head CT was found to be negative, CT angio does not show pulmonary emboli so was given 5000 unit bolus followed by drip with NSTEMI protocol. Patient is not complaining of any chest pain, shortness of breath or other changes so nitro has not been started. Discussed with patient and family at bedside several times that he has appears to be an NSTEMI, likely has concussion causing his nausea and vomiting but could be related to his cardiac issues and needs to be at a facility with inpatient Cardiology and transfer. Calls out to multiple facilities to try to facilitate transfer. [1900] (Edgardo) Patient received in sign out from [Robin]. I have reviewed the clinical course and performed an independent history and physical exam. 1999 - discussed with [facility] - approval for transfer to [facility] 2009 -discussed with [facility]-call Cardiology and [facility]demar diaz, happy with plan. Requests call to hospitalist. 2029 - call to Dr. Mayen ([facility] Hospitalist) happy to accept. ALS transport contacted, to be ready by [phone] <Richard Reynoso, DO - Last Filed: 10/09/22 23:51> Critical Care Time Critical Care Time: Yes Total Critical Care Time: 35 Attestation: The high probability of a clinically significant, sudden or life threatening deterioration of the [] system(s) required my full and direct attention, intervention and personal management. The aggregate critical care time was [35] minutes. This time is in addition to time spent performing reported procedures but includes the following: [x] Data Review and interpretation [x] Patient assessment and monitoring of vital signs [x] Documentation [x] Medication orders and management Discharge Plan Departure Patient Disposition: [facility] Clinical Impression: Laceration of scalp, Non-ST elevation LA (NSTEMI), Concussion
--- NOTE | 2022-10-09 16:30 | DI.CT.S_ITS ---
PROCEDURE: CT HEAD/BRAIN WO CON INDICATIONS: Trauma TECHNIQUE: Noncontrast 4.5 mm thick angled axial sections acquired from the foramen magnum to the vertex, with coronal and sagittal reformats. For radiation dose reduction, the following was used: automated exposure control, adjustment of mA and/or kV according to patient size. COMPARISON: None. FINDINGS: Image quality: Excellent. CSF spaces: Basal cisterns are patent. No extra-axial fluid collections. The ventricles are symmetric in size and shape. Brain: No intracranial bleeds or masses. There is cerebral volume loss for age, with resultant ventricular and sulcal prominence. There are periventricular and deep white matter chronic small vessel ischemic changes. There is intracranial internal carotid artery atherosclerosis. Skull and face: Calvarium and visualized facial bones appear intact, without suspicious lesions. Sinuses: Visualized sinuses and mastoids are clear. IMPRESSION: 1. No CT evidence of acute intracranial abnormalities. 2. Age related volume loss and mild white matter chronic small vessel ischemic changes. 3. No acute skull fracture. Dictated by: Hermes Rojas M.D. on 10/09/2022 at 16:46 Approved by: Hermes Rojas M.D. on 10/09/2022 at 16:47
[2022-10-09 16:33] LABS: Add Manual Diff / Slide Review NO; Basophils Absolute Auto 100 /uL (0-100); Eosinophils Absolute Auto 500 /uL (0-450); Eosinophils Percent Auto 3.8 % (2-4); Hematocrit 45.7 % (41-53); Hemoglobin 15.5 g/dL (13.5-17.5); Lymphocytes Absolute Auto 6000 /uL (1100-4500); Lymphocytes Percent Auto 49.5 % (25-40); Mean Corpuscular HGB Conc 33.9 % (30-36); Mean Corpuscular Hemoglobin 31.3 PG (26-34); Mean Corpuscular Volume 92.1 fL (80-100); Monocytes Absolute Auto 1100 /uL (0-900); Monocytes Percent Auto 8.8 % (3-14); Neutrophils Absolute Auto 4400 /uL (1500-7000); Neutrophils Percent Auto 36.9 % (50-75); Platelet Count 315 X10^3/uL (150-400); Red Blood Cell Count 4.97 X10^6/uL (4.5-5.9); Red Cell Distribution Width 13.9 % (11.6-14.8); White Blood Cell Count 12.1 X10^3/uL (4.5-11.0)
[2022-10-09 16:40] LABS: INR 1.1 (0.9-1.3); Prothrombin Time 12.2 SECONDS (10.1-12.7)
[2022-10-09 16:43] LABS: PTT Partial Thromboplastin Tim 32 SECONDS (26-36)
[2022-10-09 16:44] LABS: Alanine Aminotransferase 30 IU/L (<50); Albumin 4.6 g/dL (3.5-5.0); Albumin Globulin Ratio 1.3 (1.0-2.8); Alkaline Phosphatase 100 U/L (38-126); Aspartate Aminotransferase 39 IU/L (17-59); BUN Creatinine Ratio 15.8 (6-22); Bilirubin Total 0.5 mg/dL (0.2-1.3); Blood Urea Nitrogen 16 mg/dL (9-20); Calcium 8.9 mg/dL (8.4-10.2); Carbon Dioxide 17 mmol/L (22-32); Chloride 104 mmol/L (98-107); Creatine Kinase 340 U/L (55-170); Estimated Glomerular Filt Rate > 60 mL/min (>60); Ethanol (ETOH) < 10 mg/dL; Globulin 3.5 g/dL (1.7-4.1); Glucose 147 mg/dL (80-110); HEMOLYSIS < 15 (0-50); Lipase 87 U/L (23-300); Potassium 3.5 mmol/L (3.4-5.1); Sodium 137 mmol/L (137-145); Total Protein 8.1 g/dL (6.3-8.2)
[2022-10-09] MEDS: SODIUM CHLORIDE 0.9% 1,000 ML 150 ML IV (16:48)
[2022-10-09] MEDS: ONDANSETRON 4 MG/2 ML INJ IV (16:48)
[2022-10-09 16:58] LABS: Troponin I 0.446 ng/mL (0.01-0.034)
[2022-10-09 17:00] LABS: Lactate (Lactic Acid) 3.1 mmol/L (0.7-2.1)
--- NOTE | 2022-10-09 17:09 | DI.CT.S_ITS ---
PROCEDURE: CT ANGIO CHEST PE PROTOCOL INDICATIONS: fall vs syncope, + trop TECHNIQUE: After the administration of intravenous contrast, 2 mm thick sections acquired from the pulmonary apices to the posterior costophrenic angles. 3-dimensional maximum intensity projection (MIP) coronal and sagittal reformats were then acquired through the thorax. For radiation dose reduction, the following was used: automated exposure control, adjustment of mA and/or kV according to patient size. COMPARISON: [facility], CR, XR PELVIS 1-2V, 10/09/2022, 16:12. [facility], CR, XR CHEST 1V, 10/09/2022, 16:12. [facility], CT, CT CERVICAL SPINE WO CON, 10/09/2022, 16:32. [facility], CT, CT ABDOMEN PELVIS W CON, 10/09/2022, 17:17. [facility], CT, CT HEAD/BRAIN WO CON, 10/09/2022, 16:32. FINDINGS: Image quality: Excellent. Pulmonary arteries: Pulmonary arteries are normal in size, and demonstrate no intraluminal filling defects to suggest central pulmonary embolism. Lungs and pleura: Lungs are clear. No pleural effusions or pneumothorax. Central and peripheral airways are patent. Mediastinum: Heart size is normal, without pericardial effusion. Moderate coronary artery calcification is seen. No mediastinal or hilar adenopathy. Thoracic aorta is normal in caliber and enhancement. Esophagus is normal in caliber, without hiatal hernia. Bones and chest wall: No suspicious bony lesions. Ribs and thoracic spine appear intact throughout. Age-appropriate bony degenerative changes are seen. Thyroid gland demonstrates no significant abnormality. No axillary or supraclavicular adenopathy. Abdomen: Visualized upper abdominal solid organs appear normal in the early arterial phase of enhancement. IMPRESSION: No findings of pulmonary embolism. Clear lungs, without pneumothorax. No displaced rib fracture can be seen. No acute thoracic spine fracture is seen. Additional findings: Moderate coronary artery calcification Dictated by: Tahir Mendez M.D. on 10/09/2022 at 16:56 Approved by: Tahir Mendez M.D. on 10/09/2022 at 16:59
--- NOTE | 2022-10-09 17:09 | DI.CT.S_ITS ---
PROCEDURE: CT ABDOMEN PELVIS W CON INDICATIONS: trauma, + trop, fall TECHNIQUE: After the administration of intravenous contrast, 5 mm thick sections acquired from the diaphragms to the symphysis. 2.5 mm thick coronal and sagittal reformats were acquired. For radiation dose reduction, the following was used: automated exposure control, adjustment of mA and/or kV according to patient size. COMPARISON: [facility], CT, CT ANGIO CHEST PE PROTOCOL, 10/09/2022, 17:17. [facility], CT, CT HEAD/BRAIN WO CON, 10/09/2022, 16:32. [facility], CT, CT CERVICAL SPINE WO CON, 10/09/2022, 16:32. [facility], CR, XR CHEST 1V, 10/09/2022, 16:12. [facility], CR, XR PELVIS 1-2V, 10/09/2022, 16:12. FINDINGS: Image quality: Excellent. ABDOMEN: Lung bases: Lung bases are clear. Heart size is normal. No pericardial effusion. Inferior ribs are intact. No basal pleural effusions or pneumothorax. Solid organs: Liver is normal in size and enhancement, without lacerations. There is a rim calcified lesion seen involving the superior liver, as on series 3, image 34 measuring 9 mm, which is considered to be benign. Gallbladder wall is not thickened. Biliary system is non-dilated. Pancreas enhances normally, without transection. Spleen is normal in size and enhancement, without lacerations. No adrenal hematomas. Both kidneys enhance normally, without hydronephrosis or lacerations. Simple appearing nonenhancing right renal cysts are seen. Peritoneum and bowel: No free fluid or air. Is moderate wall thickening can be seen involving the distal colon from the transverse colon through the mid descending colon. The remainder of the colon is within normal limits, although there is tortuosity seen of the sigmoid colon. Unenhanced bowel loops otherwise demonstrate normal wall thickness and caliber. A normal appendix is incidentally noted. Nodes and vessels: No retroperitoneal or mesenteric adenopathy. Aorta and inferior vena cava are normal in size and enhancement. Miscellaneous: No ventral hernias. PELVIS: Genitourinary: Bladder wall thickness is normal. The prostate is enlarged, measuring 7.1 cm transversely and 8.3 cm craniocaudal. Miscellaneous: No inguinal adenopathy. Bilateral inguinal hernias are seen. The right inguinal hernia contains fat and nondilated distal small bowel. The left inguinal hernia contains fat and portion urinary bladder. Bones: Pelvic ring and hip joints appear intact. No vertebral compression fractures. There is a T12 vertebral body hemangioma seen on the right, as on series 3, image 42. At least moderate lumbar spine degenerative change is seen. Mild dextroconvex scoliotic curvature is seen. IMPRESSION: No ole acute posttraumatic abnormality is seen. Moderate distal colon wall thickening can be seen. Please correlate with potential infectious or inflammatory causes of colitis. Bilateral inguinal hernias are seen, with the right inguinal hernia containing nondilated small bowel and the left inguinal hernia containing a portion urinary bladder. Additional findings: Benign-appearing rim calcified lesion within the superior liver Simple appearing right renal cysts Dextroconvex scoliotic curvature T12 vertebral body hemangioma Tortuous sigmoid colon Enlarged prostate Dictated by: Tahir Mendez M.D. on 10/09/2022 at 16:59 Approved by: Tahir Mendez M.D. on 10/09/2022 at 17:05
[2022-10-09 17:33] LABS: NT-proBNP (BNP-Adult 18+) 28 pg/mL (<450)
--- NOTE | 2022-10-09 17:34 | PC.NURSE ---
Patient's declined tetanus for patient, citing personal beliefs. Patient continued to vomit despite a total of 8mg of Zofran, had order for 0.5mg Ativan IV. Patient declined Ativan despite continuing to have active vomiting, stating I want to hold off. Inquired why patient wanted to wait, patient stated you already gave me something to which I stated It hasn't worked and I'm trying to stop your vomiting. Patient continued to say I want to hold off and I inquired as to why in an effort to educate, patient stated I don't take a whole lot of medications and don't want any more. Provider notified.
[2022-10-09] MEDS: HEPARIN 5,000 UNIT/ML VIAL 5000 UNIT IV (18:30)
[2022-10-09] MEDS: HEPARIN DRIP 25,000 UNIT/500 ML IV.SOLN 20 UNIT IV (18:34)
[2022-10-09 18:45] LABS: Reflexed Lactate in 2 Hours Y
[2022-10-09 19:14] LABS: COVID19 -Nasal RAPID Negative (Negative)
[2022-10-09 19:15] LABS: Troponin I 0.469 ng/mL (0.01-0.034)
[2022-10-09 19:16] LABS: Ur Creatinine Normal (Normal); Ur Specific Gravity Normal (Normal); Urine pH Normal (Normal)
[2022-10-09 19:17] LABS: UR Morphine/Opiate cutoff 300 Negative (Negative); Urine Amphetamines Negative (Negative); Urine Barbiturates Negative (Negative); Urine Benzodiazepines Negative (Negative); Urine Cocaine Negative (Negative); Urine MDMA Negative (Negative); Urine Methadone Negative (Negative); Urine Methamphetamines Negative (Negative); Urine Oxycodone Negative (Negative); Urine Phencyclidine Negative (Negative); Urine Tetrahydrocannabinol Negative (Negative); Urine Tricyclic Antidepressant Negative (Negative)
[2022-10-09 19:19] LABS: Lactate 2HR (Lactic Acid Rflx) 2.1 mmol/L (0.7-2.1)
[2022-10-09 19:36] LABS: Bacteria Urine None Seen; Culture Indicated Urine Cult Not Indicated; RBC Urine 1-5/HPF (0-5/HPF); Squamous Epithelial Cell Urine 0-1 /HPF (0-5/HPF); WBC Urine 0-1/HPF (0-5/HPF)
[2022-10-09] MEDS: ASPIRIN 81 MG CHEW TAB 324 MG PO (20:46)
[2022-10-09] MEDS: ATORVASTATIN 20 MG TABLET 80 MG PO (20:47)
--- NOTE | 2022-10-09 20:50 | PC.NURSE ---
Educated patient on use and purpose of atorvastatin and aspirin, patient agreed to take.
--- NOTE | 2022-10-10 00:08 | PC.NURSE ---
Patient transferred with heparin infusing.
== END 2022-10-10 00:16 | disposition short-term general hospital (02) ==
PROVIDERS: Emergency Medicine; Emergency Provider Emergency Medicine
DX: I21.4 Non-ST elevation (NSTEMI) myocardial infarction (principal); S06.0X0A Concussion without loss of consciousness, initial encounter; S01.01XA Laceration without foreign body of scalp, initial encounter; R11.2 Nausea with vomiting, unspecified; W17.89XA Other fall from one level to another, initial encounter; Z20.822 Contact with and (suspected) exposure to COVID-19
CPT/HCPCS: 36415; 70450; 71045; 71275; 72125; 72170; 74177; 80053; 80305; 80320; 81003; 81015; 82550; 83605; 83690; 83880; 84484; 85025; 85610; 85730; 86850; 86900; 86901; 87635; 93005; 96365; 96366; 96375; 99285; 99291; C9803; G0390; J1644; J2060; J2405; Q9967